=== PATIENT | female | born 1960 ===

== ENCOUNTER → 2023-08-28 14:58 | Outpatient (CLI) | payer OTHER, SELFPAY ==
[2023-08-28 15:47] LABS: Influenza A - CEPHEID Flu A NEGATIVE (NEGATIVE); Influenza B - CEPHEID Flu B NEGATIVE (NEGATIVE); Respiratory Syncytial Virus Negative (Negative)
[2023-08-28 15:48] LABS: COVID-19 CEPHEID 4-PLEX PCR Negative (Negative)
== END ==
PROVIDERS: Visit Provider Physician Assistant
DX: R05.1 Acute cough (principal)
CPT/HCPCS: 0241U

== ENCOUNTER → 2023-08-28 15:39 | Outpatient (CLI) | payer OTHER, SELFPAY ==
--- NOTE | 2023-08-28 15:45 | DI.RAD.S_ITS ---
PROCEDURE: XR CHEST 2V INDICATIONS: Cough and wheezing TECHNIQUE: 2 views of the chest were acquired. COMPARISON: None. FINDINGS: Surgical changes and devices: None. Lungs and pleura: Lungs are clear. No pleural effusions or pneumothorax. Lungs hyperinflated suggesting COPD. Mediastinum: Mediastinal contours are normal. Heart size is normal. Bones and chest wall: No suspicious bony abnormalities. Soft tissues appear unremarkable. IMPRESSION: No acute cardiopulmonary abnormality is seen. Dictated by: Britt Brar MD, PhD on 08/28/2023 at 16:05 Approved by: Britt Brar MD, PhD on 08/28/2023 at 16:05
== END ==
PROVIDERS: Referring Provider Physician Assistant; Visit Provider Physician Assistant
DX: R05.1 Acute cough (principal)
CPT/HCPCS: 0241U; 71046

== ENCOUNTER → 2023-09-11 12:59 | Outpatient (CLI) | payer OTHER, SELFPAY ==
--- NOTE | 2023-09-11 13:00 | DI.RAD.S_ITS ---
PROCEDURE: XR KNEE LT 3V INDICATIONS: left knee pain TECHNIQUE: 3 views of the knee were acquired. COMPARISON: None. FINDINGS: Bones: No fractures or dislocations. There is pftj-la-ayovimqo tricompartmental osteoarthritis more notably in medial femoral tibial compartment and patellofemoral compartment. Slight lateral tilt of patella is seen. No suspicious bony lesions. Soft tissues: Moderate suprapatellar joint effusion is seen. No suspicious soft tissue calcifications. IMPRESSION: [id number] tricompartmental osteoarthritis as above. No acute fracture or dislocation. Moderate suprapatellar joint effusion. Dictated by: Baldemar Thakkar M.D. on 09/11/2023 at 14:58 Approved by: Baldemar Thakkar M.D. on 09/11/2023 at 14:59
== END ==
PROVIDERS: Referring Provider Physical Medicine & Rehabilitation; Visit Provider Physical Medicine & Rehabilitation
DX: M17.12 Unilateral primary osteoarthritis, left knee (principal); M25.462 Effusion, left knee; M25.562 Pain in left knee
CPT/HCPCS: 73630

== ENCOUNTER → 2023-09-23 09:11 | Outpatient (CLI) | payer OTHER, SELFPAY ==
--- NOTE | 2023-09-23 09:13 | DI.MRI.S_ITS ---
PROCEDURE: MR KNEE LT WO CON INDICATIONS: meniscal tear acute TECHNIQUE: Noncontrast sagittal PD fast spin echo and T2 fast spin echo with fat saturation, sagittal 3-D FLASH with fat saturation; coronal T1 spin echo and PD fast spin echo with fat saturation, and axial PD fast spin echo with fat saturation through the knee. COMPARISON: None. FINDINGS: Image quality: Excellent. Menisci: Peripheral displacement of medial meniscus bowing medial collateral ligament is seen. Complex oblique tear involving posterior horn of medial meniscus extending to superior articulating surface is seen. The lateral meniscus is intact. The meniscal root ligaments appear intact. Cruciate ligaments: The anterior cruciate ligament is thickened. The posterior cruciate ligament is intact. Medial structures: The medial collateral ligament appears mildly thickened with adjacent soft tissue edema. Visualized portions of the pes anserinus tendons appear normal. No abnormal bursal fluid. Lateral structures: The lateral collateral ligament, long and short heads of the biceps femoris tendon appear intact. The popliteus tendon appears normal. Iliotibial band appears normal. Anterior structures: Distal quadriceps tendinosis at its superior patellar insertion is seen. The patellar tendon is intact. Patellar alignment is normal. No femoral trochlear dysplasia or ventral trochlear prominence. No edema in the infrapatellar fat pad. Bones and cartilage: No bone marrow contusions or fractures. Uimh-xq-kilelkji tricompartmental osteoarthritis and chondromalacia is seen most notably in medial femoral tibial compartment. Joint space: There is moderate to large knee joint fluid. No gross loose bodies. No Bond's cyst. Normal appearing synovial plicae are incidentally noted. IMPRESSION: 1. Complex oblique tear involving posterior horn of medial meniscus extending to inferior articulating surface. The lateral meniscus is intact. 2. Low-grade ACL sprain. No ACL rupture. The PCL is intact. 3. Low-grade MCL sprain/partial-thickness tear. 4. Distal quadriceps tendinosis. 5. Bois-on-ycvrfedp tricompartmental osteoarthritis and chondromalacia most notably in medial femoral tibial compartment. No fracture or dislocation. Moderate joint effusion, no gross loose bodies. Dictated by: Baldemar Thakkar M.D. on 09/24/2023 at 12:13 Approved by: Baldemar Thakkar M.D. on 09/24/2023 at 12:15
== END ==
LOC: MRI 09:12
PROVIDERS: Family Provider Physical Medicine & Rehabilitation; PCP Physical Medicine & Rehabilitation; Referring Provider Physical Medicine & Rehabilitation; Visit Provider Physical Medicine & Rehabilitation
DX: S83.232A Complex tear of medial meniscus, current injury, left knee, initial encounter (principal); S83.512A Sprain of anterior cruciate ligament of left knee, initial encounter; S83.412A Sprain of medial collateral ligament of left knee, initial encounter; M17.12 Unilateral primary osteoarthritis, left knee; M94.262 Chondromalacia, left knee; M25.462 Effusion, left knee
CPT/HCPCS: 73721

== ENCOUNTER → 2023-09-25 13:39 | Outpatient (CLI) | payer OTHER, SELFPAY ==
--- NOTE | 2023-09-25 13:40 | DI.RAD.S_ITS ---
PROCEDURE: XR KNEE RT 3V INDICATIONS: knee djd TECHNIQUE: 3 views of the knee were acquired. COMPARISON: [facility], CR, XR KNEE LT 3V, 09/11/2023, 13:10. FINDINGS: Bones: No fractures or dislocations. No suspicious bony lesions. Tricompartmental joint space narrowing. Osteophytic lipping of the patella. Soft tissues: No joint effusion. No suspicious soft tissue calcifications. IMPRESSION: Mild tricompartmental osteoarthritis. Dictated by: Farooq Preston M.D. on 09/25/2023 at 15:54 Approved by: Farooq Preston M.D. on 09/25/2023 at 15:55
--- NOTE | 2023-09-25 13:43 | DI.RAD.S_ITS ---
PROCEDURE: XR KNEE LT 1TO2V INDICATIONS: PAIN TECHNIQUE: 1 views of the knee were acquired. COMPARISON: [facility], CR, XR KNEE LT 3V, 09/11/2023, 13:10. FINDINGS: Bones: No fractures or dislocations. No suspicious bony lesions. Bicompartmental joint space narrowing, with osteophytic lipping. Soft tissues: No suspicious soft tissue calcifications. IMPRESSION: Mild bicompartmental osteoarthritis. Dictated by: Farooq Preston M.D. on 09/25/2023 at 15:57 Approved by: Farooq Preston M.D. on 09/25/2023 at 15:58
== END ==
PROVIDERS: Family Provider Physical Medicine & Rehabilitation; Referring Provider Physical Medicine & Rehabilitation; Visit Provider Physical Medicine & Rehabilitation
DX: M17.0 Bilateral primary osteoarthritis of knee
CPT/HCPCS: 73560; 73562

== ENCOUNTER 2024-01-14 16:45 | Outpatient (RCR) | payer OTHER, SELFPAY ==
--- NOTE | 2023-10-17 14:30 | PT.OIE ---
Current Diagnoses Unilateral primary osteoarthritis, left knee (10/17/23) Pain in left knee (10/17/23) Stiffness of left knee, not elsewhere classified (10/17/23) Other tear of medial meniscus, current injury, left knee, initial encounter (10/17/23) Past Medical History (Last Reviewed 09/24/23 @ 08:44 by Hank Rey DO) Arthritis of left knee Tear of medial meniscus of left knee Tricompartment degenerative joint disease of knee Past Surgical History (Last Reviewed 09/24/23 @ 08:44 by Hank Rey DO) History of tonsillectomy Visit Care Team Role Provider Type Hank Rey DO Attending Provider Physician Family Provider Primary Care Provider Referring Provider Specialty: Interventional Radiology Physiatry Pain Management Address: [address] [place] [address], [id number] Email: [email or web address] Physical Therapy Initial Evaluation PT-OP-A Visit Information Start: 10/17/23 17:43 Freq: Status: Active Protocol: Document 10/17/23 13:45 DCW (Rec: 10/17/23 17:50 DCW [id number]) Out-Patient Physical Therapy Visit Information Visit Information Visit Type Initial Evaluation Visit Start Time 13:45 Visit Stop Time 14:30 Visit Number 1 Number of LINE TENDER Visits 0 Evaluation Information Evaluation Date 10/17/23 PT-OP-B Current Condition Start: 10/17/23 17:43 Freq: Status: Active Protocol: Document 10/17/23 13:45 DCW (Rec: 10/18/23 10:56 DCW [id number]) Current Condition History of Current Condition Onset Date March, Current Complaints Meniscus tear, MCL/ACL sprain History of Current Condition Pt is a 63 year old female presenting with a seven month history of left knee pain. Notes that in March,, she was kneeling on a pile of books, which the slipped out from under her, resulting in her slamming her knee to the floor. Was painful at that point, but she was able to get up and walk around on it, so she basically just ignored it , although it never really went away. Pt was then hiking September 01, 2023, and five miles into her seven mile hike , she felt something give in her knee, and has had significantly increased discomfort since then. Obtained an MRI, which showed a medial meniscus tear, ACL sprain, and MCL sprain/partial -thickness tear. Has improved some since August, able to perform light jogging okay, but still feels weaker and less stable. Has difficulty standing on one leg. Squatting and ascending/descending stairs is more difficult. Prior Treatments and Tests Left knee MRI: IMPRESSION: 1. Complex oblique tear involving posterior horn of medial meniscus extending to inferior articulating surface. The lateral meniscus is intact. 2. Low-grade ACL sprain. No ACL rupture. The PCL is intact. 3. Low-grade MCL sprain/partial-thickness tear. 4. Distal quadriceps tendinosis. 5. 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 No fracture or dislocation. Moderate joint effusion, no gross loose bodies. per Baldemar Thakkar M.D. on 09/24/2023 Treatment Goals Patient/Caregiver Goals I'd like it if it just went back to ignorable pain. PT-OP-C Subjective Start: 10/17/23 17:43 Freq: Status: Active Protocol: Document 10/17/23 13:45 DCW (Rec: 10/17/23 17:50 DCW [id number]) OP-PT Subjective Patient Comments Patient Comments I feel like my right knee isn 't far behind my left. Patient Reported Progress Improving Patient Questionnaires Lower Extremity Functional Scale LEFS Score 52/80 = 65% PT-OP-G Mobility & Gait Start: 10/17/23 17:43 Freq: Status: Active Protocol: Document 10/17/23 13:45 DCW (Rec: 10/18/23 10:56 DCW [id number]) OP Gait Assessment Comments Gait Comments Slight left toe-out/ER during gait Stair Climbing Evaluation Comments Stair Climbing Comments When lowering with left leg, pt exhibits significantly less control over descent, more of a free-fall that is stopped by her right foot. PT-OP-K Range of Motion Start: 10/17/23 17:43 Freq: Status: Active Protocol: Document 10/17/23 13:45 DCW (Rec: 10/18/23 10:56 DCW [id number]) Knee Goniometric Range of Motion Knee Right Patient Position Supine Flexion Active (degrees) 125 Extension Active (degrees) 2 Left Patient Position Supine Flexion Active (degrees) 119 Extension Active (degrees) 8 PT-OP-M Strength Start: 10/17/23 17:43 Freq: Status: Active Protocol: Document 10/17/23 13:45 DCW (Rec: 10/18/23 10:56 DCW [id number]) Hip Strength Hip Manual Muscle Testing Right Flexion (L2) 4+ Good+ Abduction 4+ Good+ Adduction 4 Good External Rotation 4+ Good+ Internal Rotation 4+ Good+ Left Flexion (L2) 4- Good- Abduction 4+ Good+ Adduction 4 Good External Rotation 4 Good Internal Rotation 4 Good Knee Strength Knee Manual Muscle Testing Right Flexion (S2) 4+ Good+ Extension (L3) 4+ Good+ Left Flexion (S2) 4 Good Extension (L3) 4 Good PT-OP-Q Treatments Start: 10/17/23 17:43 Freq: Status: Active Protocol: Document 10/17/23 13:45 DCW (Rec: 10/17/23 17:50 DCW [id number]) Therapeutic Exercises Supine Exercises Hamstring stretch Supine Exercise Name HS stretch /c strap Side left Bridging Supine Exercise Name Bridging /c adductor squeeze SLR Supine Exercise Name SLR /c ER Side left Standing Exercises Wall squat Standing Exercise Name Wall squat /c adductor squeeze PT-OP-T Assessment and Plan Start: 10/17/23 17:43 Freq: Status: Active Protocol: Document 10/17/23 13:45 DCW (Rec: 10/18/23 10:56 DCW [id number]) Physical Therapy Assessment Rehab Potential Rehabilitation Potential Good Evaluation Complexity Number of Personal Factors/Comorbidities 1-2 Number of Body Systems Impaired 3 Clinical Presentation at Evaluation Unstable Impairments Impairments Activity Tolerance,Functional Activities,Functional Mobility ,Pain,ROM,Soft Tissue Mobility ,Strength,Tone Goals Two Impairment Pt exhibits moderately uncontrolled descent by left LE on stairs Roll Over Press Operator Goal (LTG) Pt to exhibit proper technique with ascending and descending stairs equally between left and right LE in order to limit potential for falls or injury . LTG Duration 12/16/23 One Impairment Pt does not have an appropriate home exercise program Short Term Goal (STG) Pt to be independent and compliant with an appropriate HEP STG Duration 11/15/23 Assessment Summary Assessment Pt presents with signs and symptoms consistent with referring diagnosis. Pt exhibits some general weakness and pain throughout left knee , most evident when testing against resistance or descending stairs. Slight limitations in ROM, including 8? lacking from full extension . Pt should benefit from skilled therapeutic intervention including improving knee, quad, and hamstring strengthening, activity tolerance, knee flexibility/mobility, and pain control modalities as needed. Physical Therapy Plan Frequency and Duration Frequency of Treatment 2x/Week Plan of Care Start Date 10/17/23 Plan of Care End Date 12/16/23 Therapeutic Interventions Therapeutic Interventions Gait Training,Home Exercise Program,Joint Mobilizations, Manual Therapy,Neuromuscular Re-education,Patient/Caregiver Education,Self-Care/Home Management,Soft Tissue Mobilization,Therapeutic Activities,Therapeutic Exercises Modalities Cold Pack/Ice Massage,Electric Stimulation,Hot Packs, Ultrasound Next Visit Focus/Plan Next Note Type Treatment Note Next Visit Plan Quad/HS strengthening, balance /stability challenges, gait training
--- NOTE | 2023-10-17 14:30 | PT.OPPOC ---
Physical, Occupational & Speech Therapy At [facility] Current Diagnoses Unilateral primary osteoarthritis, left knee (10/17/23) Pain in left knee (10/17/23) Stiffness of left knee, not elsewhere classified (10/17/23) Other tear of medial meniscus, current injury, left knee, initial encounter (10/17/23) Visit Care Team Role Provider Type Hank Rey DO Attending Provider Physician Family Provider Primary Care Provider Referring Provider Specialty: Interventional Radiology Physiatry Pain Management Address: [address] [place] [address] [place], [address] Email: [email or web address] Plan Of Care PT-OP-T Assessment and Plan Start: 10/17/23 17:43 Freq: Status: Active Protocol: Document 10/17/23 13:45 DCW (Rec: 10/18/23 10:56 DCW [id number]) Physical Therapy Assessment Rehab Potential Rehabilitation Potential Good Evaluation Complexity Number of Personal Factors/Comorbidities 1-2 Number of Body Systems Impaired 3 Clinical Presentation at Evaluation Unstable Impairments Impairments Activity Tolerance,Functional Activities,Functional Mobility ,Pain,ROM,Soft Tissue Mobility ,Strength,Tone Goals Two Impairment Pt exhibits moderately uncontrolled descent by left LE on stairs Group Home Goal (LTG) Pt to exhibit proper technique with ascending and descending stairs equally between left and right LE in order to limit potential for falls or injury . LTG Duration 12/16/23 One Impairment Pt does not have an appropriate home exercise program Short Term Goal (STG) Pt to be independent and compliant with an appropriate HEP STG Duration 11/15/23 Assessment Summary Assessment Pt presents with signs and symptoms consistent with referring diagnosis. Pt exhibits some general weakness and pain throughout left knee , most evident when testing against resistance or descending stairs. Slight limitations in ROM, including 8? lacking from full extension . Pt should benefit from skilled therapeutic intervention including improving knee, quad, and hamstring strengthening, activity tolerance, knee flexibility/mobility, and pain control modalities as needed. Physical Therapy Plan Frequency and Duration Frequency of Treatment 2x/Week Plan of Care Start Date 10/17/23 Plan of Care End Date 12/16/23 Therapeutic Interventions Therapeutic Interventions Gait Training,Home Exercise Program,Joint Mobilizations, Manual Therapy,Neuromuscular Re-education,Patient/Caregiver Education,Self-Care/Home Management,Soft Tissue Mobilization,Therapeutic Activities,Therapeutic Exercises Modalities Cold Pack/Ice Massage,Electric Stimulation,Hot Packs, Ultrasound Next Visit Focus/Plan Next Note Type Treatment Note Next Visit Plan Quad/HS strengthening, balance /stability challenges, gait training Plan of Care Dates Plan of Care Start Date 10/17/23 Plan of Care End Date 12/16/23 Electronically Signed by: Ace Epstein, PT 10/18/23 7980 If you are in agreement with this Plan of Care, please return a signed and dated copy. I have reviewed this Plan of Care and certify that the skilled therapy services above are required to meet the patient?s needs. Physician Signature Date Printed Name and Credentials Clinical Instructor Signature Printed Name and Credentials
--- NOTE | 2023-10-30 17:35 | PT.OTN ---
Current Diagnoses Unilateral primary osteoarthritis, left knee (10/30/23) Pain in left knee (10/30/23) Stiffness of left knee, not elsewhere classified (10/30/23) Other tear of medial meniscus, current injury, left knee, initial encounter (10/30/23) Other tear of medial meniscus, current injury, left knee, subsequent encounter (10/30/23) Physical Therapy Treatment Note PT-OP-A Visit Information Start: 10/17/23 17:43 Freq: Status: Active Protocol: Document 10/30/23 16:45 DCW (Rec: 10/30/23 17:35 DCW [id number]) Out-Patient Physical Therapy Visit Information Visit Information Visit Type Treatment Note Visit Start Time 16:45 Visit Stop Time 17:30 Visit Number 2 Number of PIT WORKER POWER SHOVEL Visits 0 Evaluation Information Evaluation Date 10/17/23 PT-OP-B Current Condition Start: 10/17/23 17:43 Freq: Status: Active Protocol: Document 10/17/23 13:45 DCW (Rec: 10/18/23 10:56 DCW [id number]) Current Condition History of Current Condition Onset Date March, Current Complaints Meniscus tear, MCL/ACL sprain History of Current Condition Pt is a 63 year old female presenting with a seven month history of left knee pain. Notes that in March,, she was kneeling on a pile of books, which the slipped out from under her, resulting in her slamming her knee to the floor. Was painful at that point, but she was able to get up and walk around on it, so she basically just ignored it , although it never really went away. Pt was then hiking September 01, 2023, and five miles into her seven mile hike , she felt something give in her knee, and has had significantly increased discomfort since then. Obtained an MRI, which showed a medial meniscus tear, ACL sprain, and MCL sprain/partial -thickness tear. Has improved some since August, able to perform light jogging okay, but still feels weaker and less stable. Has difficulty standing on one leg. Squating and ascending/descending stairs is more difficult. Prior Treatments and Tests Left knee MRI: IMPRESSION: 1. Complex oblique tear involving posterior horn of medial meniscus extending to inferior articulating surface. The lateral meniscus is intact. 2. Low-grade ACL sprain. No ACL rupture. The PCL is intact. 3. Low-grade MCL sprain/partial-thickness tear. 4. Distal quadriceps tendinosis. 5. 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 No fracture or dislocation. Moderate joint effusion, no gross loose bodies. per Baldemar Thakkar M.D. on 09/24/2023 Treatment Goals Patient/Caregiver Goals I'd like it if it just went back to ignorable pain. PT-OP-C Subjective Start: 10/17/23 17:43 Freq: Status: Active Protocol: Document 10/30/23 16:45 DCW (Rec: 10/30/23 17:35 DCW [id number]) OP-PT Subjective Patient Comments Patient Comments Pt has been out walking a lot, doing very well, but is much more sore today for some reason. PT-OP-G Mobility & Gait Start: 10/17/23 17:43 Freq: Status: Active Protocol: Document 10/17/23 13:45 DCW (Rec: 10/18/23 10:56 DCW [id number]) OP Gait Assessment Comments Gait Comments Slight left toe-out/ER during gait Stair Climbing Evaluation Comments Stair Climbing Comments When lowering with left leg, pt exhibits significantly less control over descent, more of a free-fall that is stopped by her right foot. PT-OP-K Range of Motion Start: 10/17/23 17:43 Freq: Status: Active Protocol: Document 10/17/23 13:45 DCW (Rec: 10/18/23 10:56 DCW [id number]) Knee Goniometric Range of Motion Knee Right Patient Position Supine Flexion Active (degrees) 125 Extension Active (degrees) 2 Left Patient Position Supine Flexion Active (degrees) 119 Extension Active (degrees) 8 PT-OP-M Strength Start: 10/17/23 17:43 Freq: Status: Active Protocol: Document 10/17/23 13:45 DCW (Rec: 10/18/23 10:56 DCW [id number]) Hip Strength Hip Manual Muscle Testing Right Flexion (L2) 4+ Good+ Abduction 4+ Good+ Adduction 4 Good External Rotation 4+ Good+ Internal Rotation 4+ Good+ Left Flexion (L2) 4- Good- Abduction 4+ Good+ Adduction 4 Good External Rotation 4 Good Internal Rotation 4 Good Knee Strength Knee Manual Muscle Testing Right Flexion (S2) 4+ Good+ Extension (L3) 4+ Good+ Left Flexion (S2) 4 Good Extension (L3) 4 Good PT-OP-Q Treatments Start: 10/17/23 17:43 Freq: Status: Active Protocol: Document 10/30/23 16:45 DCW (Rec: 10/30/23 17:35 DCW [id number]) Gym Equipment Shuttle Recovery Unilateral Squats Resistance 50# Bilateral Squats Details Adductor Ball Squeeze Resistance 75# Shuttle Balance Red Details WBOS, Staggered, Lateral Therapeutic Exercises Supine Exercises SLR Supine Exercise Name SLR /c ER Side left Standing Exercises Hip Extension Standing Exercise Name Hip Extension Side bilateral Resistance [place] loop TKE Standing Exercise Name TKE Side left Other Exercises Resisted Ambulation Other Exercise Name Resisted side-stepping Resistance Green loop BOSU Lunge Other Exercise Name BOSU Lunge Side bilateral Equipment Used Blue BOSU Manual Therapy Treatment Joint Mobilizations Patella Joint B Patellafemoral Direction Inf<->Sup Grade III Knee Joint B knee Direction A<->P Grade III PT-OP-T Assessment and Plan Start: 10/17/23 17:43 Freq: Status: Active Protocol: Document 10/30/23 16:45 DCW (Rec: 10/30/23 17:35 DCW [id number]) Physical Therapy Assessment Impairments Impairments Activity Tolerance,Functional Activities,Functional Mobility ,Pain,ROM,Soft Tissue Mobility ,Strength,Tone Goals Two Impairment Pt exhibits moderately uncontrolled descent by left LE on stairs Dehydrogenation Converter Helper Goal (LTG) Pt to exhibit proper technique with ascending and descending stairs equally between left and right LE in order to limit potential for falls or injury . LTG Duration 12/16/23 One Impairment Pt does not have an appropriate home exercise program Short Term Goal (STG) Pt to be independent and compliant with an appropriate HEP STG Duration 11/15/23 Assessment Summary Assessment Pt tolerated new exercises very well today with minimal knee pain, did note some discomfort with balance challenges and with palpation of the joint line bilaterally. Good response to strengthening while unstable surfaces. Physical Therapy Plan Frequency and Duration Frequency of Treatment 2x/Week Plan of Care Start Date 10/17/23 Plan of Care End Date 12/16/23 Therapeutic Interventions Therapeutic Interventions Gait Training,Home Exercise Program,Joint Mobilizations, Manual Therapy,Neuromuscular Re-education,Patient/Caregiver Education,Self-Care/Home Management,Soft Tissue Mobilization,Therapeutic Activities,Therapeutic Exercises Modalities Cold Pack/Ice Massage,Electric Stimulation,Hot Packs, Ultrasound Next Visit Focus/Plan Next Note Type Treatment Note Next Visit Plan Quad/HS strengthening, balance /stability challenges, gait training
--- NOTE | 2023-11-02 14:34 | PT.OTN ---
Current Diagnoses Unilateral primary osteoarthritis, left knee (11/02/23) Pain in left knee (11/02/23) Stiffness of left knee, not elsewhere classified (11/02/23) Other tear of medial meniscus, current injury, left knee, initial encounter (11/02/23) Other tear of medial meniscus, current injury, left knee, subsequent encounter (11/02/23) Physical Therapy Treatment Note PT-OP-A Visit Information Start: 10/17/23 17:43 Freq: Status: Active Protocol: Document 11/02/23 13:45 DCW (Rec: 11/02/23 14:34 DCW [id number]) Out-Patient Physical Therapy Visit Information Visit Information Visit Type Treatment Note Visit Start Time 13:45 Visit Stop Time 14:30 Visit Number 3 Number of INDUSTRIAL DIAMOND POLISHER Visits 0 Evaluation Information Evaluation Date 10/17/23 PT-OP-B Current Condition Start: 10/17/23 17:43 Freq: Status: Active Protocol: Document 10/17/23 13:45 DCW (Rec: 10/18/23 10:56 DCW [id number]) Current Condition History of Current Condition Onset Date March, Current Complaints Meniscus tear, MCL/ACL sprain History of Current Condition Pt is a 63 year old female presenting with a seven month history of left knee pain. Notes that in March,, she was kneeling on a pile of books, which the slipped out from under her, resulting in her slamming her knee to the floor. Was painful at that point, but she was able to get up and walk around on it, so she basically just ignored it , although it never really went away. Pt was then hiking September 01, 2023, and five miles into her seven mile hike , she felt something give in her knee, and has had significantly increased discomfort since then. Obtained an MRI, which showed a medial meniscus tear, ACL sprain, and MCL sprain/partial -thickness tear. Has improved some since August, able to perform light jogging okay, but still feels weaker and less stable. Has difficulty standing on one leg. Squating and ascending/descending stairs is more difficult. Prior Treatments and Tests Left knee MRI: IMPRESSION: 1. Complex oblique tear involving posterior horn of medial meniscus extending to inferior articulating surface. The lateral meniscus is intact. 2. Low-grade ACL sprain. No ACL rupture. The PCL is intact. 3. Low-grade MCL sprain/partial-thickness tear. 4. Distal quadriceps tendinosis. 5. 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 No fracture or dislocation. Moderate joint effusion, no gross loose bodies. per Baldemar Thakkar M.D. on 09/24/2023 Treatment Goals Patient/Caregiver Goals I'd like it if it just went back to ignorable pain. PT-OP-C Subjective Start: 10/17/23 17:43 Freq: Status: Active Protocol: Document 11/02/23 13:45 DCW (Rec: 11/02/23 14:34 DCW [id number]) OP-PT Subjective Patient Comments Patient Comments Knee feeling better today, was not sore following her last appointment. PT-OP-G Mobility & Gait Start: 10/17/23 17:43 Freq: Status: Active Protocol: Document 10/17/23 13:45 DCW (Rec: 10/18/23 10:56 DCW [id number]) OP Gait Assessment Comments Gait Comments Slight left toe-out/ER during gait Stair Climbing Evaluation Comments Stair Climbing Comments When lowering with left leg, pt exhibits significantly less control over descent, more of a free-fall that is stopped by her right foot. PT-OP-K Range of Motion Start: 10/17/23 17:43 Freq: Status: Active Protocol: Document 10/17/23 13:45 DCW (Rec: 10/18/23 10:56 DCW [id number]) Knee Goniometric Range of Motion Knee Right Patient Position Supine Flexion Active (degrees) 125 Extension Active (degrees) 2 Left Patient Position Supine Flexion Active (degrees) 119 Extension Active (degrees) 8 PT-OP-M Strength Start: 10/17/23 17:43 Freq: Status: Active Protocol: Document 10/17/23 13:45 DCW (Rec: 10/18/23 10:56 DCW [id number]) Hip Strength Hip Manual Muscle Testing Right Flexion (L2) 4+ Good+ Abduction 4+ Good+ Adduction 4 Good External Rotation 4+ Good+ Internal Rotation 4+ Good+ Left Flexion (L2) 4- Good- Abduction 4+ Good+ Adduction 4 Good External Rotation 4 Good Internal Rotation 4 Good Knee Strength Knee Manual Muscle Testing Right Flexion (S2) 4+ Good+ Extension (L3) 4+ Good+ Left Flexion (S2) 4 Good Extension (L3) 4 Good PT-OP-Q Treatments Start: 10/17/23 17:43 Freq: Status: Active Protocol: Document 11/02/23 13:45 DCW (Rec: 11/02/23 14:34 DCW [id number]) Cardio Equipment Bicycle (Upright) Duration (Minutes) 4 Resistance 5 Seat Position 6 Gym Equipment Shuttle Recovery Unilateral Squats Resistance 50# Bilateral Squats Details Adductor Ball Squeeze Resistance 87# Shuttle Balance Red Details WBOS, Staggered, Lateral Therapeutic Exercises Standing Exercises Hip Extension Standing Exercise Name Hip Extension Side bilateral Resistance Green loop Other Exercises Resisted Ambulation Other Exercise Name Resisted side-stepping Resistance Green loop BOSU Lunge Other Exercise Name BOSU Lunge Side bilateral Equipment Used Blue BOSU Comments Medial/Lateral T-band pull Manual Therapy Treatment Joint Mobilizations Patella Joint B Patellafemoral Direction Inf<->Sup Grade III Knee Joint B knee Direction A<->P Grade III Neuro Re-Education Treatment Balance Activities Step-ups Details Lateral step-ups Surface AirEx PT-OP-T Assessment and Plan Start: 10/17/23 17:43 Freq: Status: Active Protocol: Document 11/02/23 13:45 DCW (Rec: 11/02/23 14:34 DCW [id number]) Physical Therapy Assessment Impairments Impairments Activity Tolerance,Functional Activities,Functional Mobility ,Pain,ROM,Soft Tissue Mobility ,Strength,Tone Goals Two Impairment Pt exhibits moderately uncontrolled descent by left LE on stairs Group Home Goal (LTG) Pt to exhibit proper technique with ascending and descending stairs equally between left and right LE in order to limit potential for falls or injury . LTG Duration 12/16/23 One Impairment Pt does not have an appropriate home exercise program Short Term Goal (STG) Pt to be independent and compliant with an appropriate HEP STG Duration 11/15/23 Assessment Summary Assessment Pt continues to do well with increased activities in PT. Trial of upright bicycle, pt notes able to do it with no increase in pain, interested in joining a gym to continue using stationary bike. Physical Therapy Plan Frequency and Duration Frequency of Treatment 2x/Week Plan of Care Start Date 10/17/23 Plan of Care End Date 12/16/23 Therapeutic Interventions Therapeutic Interventions Gait Training,Home Exercise Program,Joint Mobilizations, Manual Therapy,Neuromuscular Re-education,Patient/Caregiver Education,Self-Care/Home Management,Soft Tissue Mobilization,Therapeutic Activities,Therapeutic Exercises Modalities Cold Pack/Ice Massage,Electric Stimulation,Hot Packs, Ultrasound Next Visit Focus/Plan Next Note Type Treatment Note Next Visit Plan Quad/HS strengthening, balance /stability challenges, gait training
--- NOTE | 2023-11-14 09:42 | PT.OTN ---
Current Diagnoses Unilateral primary osteoarthritis, left knee (11/14/23) Pain in left knee (11/14/23) Stiffness of left knee, not elsewhere classified (11/14/23) Other tear of medial meniscus, current injury, left knee, initial encounter (11/14/23) Other tear of medial meniscus, current injury, left knee, subsequent encounter (11/14/23) Physical Therapy Treatment Note PT-OP-A Visit Information Start: 10/17/23 17:43 Freq: Status: Active Protocol: Document 11/14/23 08:02 AB (Rec: 11/14/23 09:00 AB [id number]) Out-Patient Physical Therapy Visit Information Visit Information Visit Type Treatment Note Visit Note Access Code [email or web address] Visit Start Time 08:16 Visit Stop Time 08:58 Visit Number 4 Number of EMBALMER/FUNERAL DIRECTOR Visits 1 Evaluation Information Evaluation Date 10/17/23 PT-OP-B Current Condition Start: 10/17/23 17:43 Freq: Status: Active Protocol: Document 10/17/23 13:45 DCW (Rec: 10/18/23 10:56 DCW [id number]) Current Condition History of Current Condition Onset Date March, Current Complaints Meniscus tear, MCL/ACL sprain History of Current Condition Pt is a 63 year old female presenting with a seven month history of left knee pain. Notes that in March,, she was kneeling on a pile of books, which the slipped out from under her, resulting in her slamming her knee to the floor. Was painful at that point, but she was able to get up and walk around on it, so she basically just ignored it , although it never really went away. Pt was then hiking September 01, 2023, and five miles into her seven mile hike , she felt something give in her knee, and has had significantly increased discomfort since then. Obtained an MRI, which showed a medial meniscus tear, ACL sprain, and MCL sprain/partial -thickness tear. Has improved some since August, able to perform light jogging okay, but still feels weaker and less stable. Has difficulty standing on one leg. Squating and ascending/descending stairs is more difficult. Prior Treatments and Tests Left knee MRI: IMPRESSION: 1. Complex oblique tear involving posterior horn of medial meniscus extending to inferior articulating surface. The lateral meniscus is intact. 2. Low-grade ACL sprain. No ACL rupture. The PCL is intact. 3. Low-grade MCL sprain/partial-thickness tear. 4. Distal quadriceps tendinosis. 5. 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 No fracture or dislocation. Moderate joint effusion, no gross loose bodies. per Baldemar Thakkar M.D. on 09/24/2023 Treatment Goals Patient/Caregiver Goals I'd like it if it just went back to ignorable pain. PT-OP-C Subjective Start: 10/17/23 17:43 Freq: Status: Active Protocol: Document 11/14/23 08:02 AB (Rec: 11/14/23 09:00 AB [id number]) OP-PT Subjective Patient Comments Patient Comments Patient reports the knee is getting better, forgets about the pain about a half an hour at a time. PT-OP-G Mobility & Gait Start: 10/17/23 17:43 Freq: Status: Active Protocol: Document 10/17/23 13:45 DCW (Rec: 10/18/23 10:56 DCW [id number]) OP Gait Assessment Comments Gait Comments Slight left toe-out/ER during gait Stair Climbing Evaluation Comments Stair Climbing Comments When lowering with left leg, pt exhibits significantly less control over descent, more of a free-fall that is stopped by her right foot. PT-OP-K Range of Motion Start: 10/17/23 17:43 Freq: Status: Active Protocol: Document 10/17/23 13:45 DCW (Rec: 10/18/23 10:56 DCW [id number]) Knee Goniometric Range of Motion Knee Right Patient Position Supine Flexion Active (degrees) 125 Extension Active (degrees) 2 Left Patient Position Supine Flexion Active (degrees) 119 Extension Active (degrees) 8 PT-OP-M Strength Start: 10/17/23 17:43 Freq: Status: Active Protocol: Document 10/17/23 13:45 DCW (Rec: 10/18/23 10:56 DCW [id number]) Hip Strength Hip Manual Muscle Testing Right Flexion (L2) 4+ Good+ Abduction 4+ Good+ Adduction 4 Good External Rotation 4+ Good+ Internal Rotation 4+ Good+ Left Flexion (L2) 4- Good- Abduction 4+ Good+ Adduction 4 Good External Rotation 4 Good Internal Rotation 4 Good Knee Strength Knee Manual Muscle Testing Right Flexion (S2) 4+ Good+ Extension (L3) 4+ Good+ Left Flexion (S2) 4 Good Extension (L3) 4 Good PT-OP-Q Treatments Start: 10/17/23 17:43 Freq: Status: Active Protocol: Document 11/14/23 08:02 AB (Rec: 11/14/23 09:00 AB [id number]) Therapeutic Exercises Supine Exercises quad set Side left Equipment Used X10 Comments post manual therapy and hamstring stretch Hamstring stretch Supine Exercise Name HS stretch holding behind knee with towel Side left Reps/Minutes 60 seconds X 2 Comments post manual therapy Bridging Supine Exercise Name Bridging /c adductor squeeze SLR Supine Exercise Name SLR /c ER Side left Sitting Exercises seated hip abduction with band Side bilateral Equipment Used level one light blue band Reps/Minutes X10 X 2 and one one min hold Comments Verbal cues Standing Exercises mini squat with band Side bilateral Resistance 2X10 Equipment Used light blue band above knees Reps/Minutes 2X10 Comments VC to squat to a depth that does not increase pain Gait Training Gait Activity ambulation without device Distance/Duration 25 ft X 2 Comments VC for heel toe pattern, mimic pattern of unaffected LE VC to increase knee extension on heel strike not joselyn ascending and desc 6 inch steps X4 X 3 Distance/Duration first set of 4 steps assessment 2nd and 3rd set training Comments Verbal and visual cues to descend stairs with a less quad dominant pattern, slight hip hinge. Manual Therapy Treatment Soft Tissue Mobilization for swelling, hamstring stiffness and area of inc density lat left knee Body Location left LE Mobilization Type Cross-Friction,Rolling Body Position Hooklying Comments prior to stretch Joint Mobilizations Patella Joint B Patellafemoral Direction inf sup, cw and CCW Grade III Neuro Re-Education Treatment Balance Activities Step-ups Details Lateral step-ups Surface AirEx Equipment one air ex left LE 2 stacked for right LE Reps/Duration X10 each LE Comments trial of 2 stacked for left LE LE reports less pain than previous session, but pain not eliminated Self-Care/Home Management Treatment Activities Self-Care/Home Management Activities mini squat with band and seated hip abd with band added to HEP PT-OP-T Assessment and Plan Start: 10/17/23 17:43 Freq: Status: Active Protocol: Document 11/14/23 08:02 AB (Rec: 11/14/23 09:00 AB [id number]) Physical Therapy Assessment Goals Two Impairment Pt exhibits moderately uncontrolled descent by left LE on stairs Mcfp Goal (LTG) Pt to exhibit proper technique with ascending and descending stairs equally between left and right LE in order to limit potential for falls or injury . LTG Duration 12/16/23 One Impairment Pt does not have an appropriate home exercise program Short Term Goal (STG) Pt to be independent and compliant with an appropriate HEP STG Duration 11/15/23 Assessment Summary Assessment Alethea able to descend stairs with a less quad dominant pattern, increased stance time left LE descending and reports of decreased pain. Patient is only able to perform a minimal depth squat prior to increase in pain. Physical Therapy Plan Frequency and Duration Frequency of Treatment 2x/Week Plan of Care Start Date 10/17/23 Plan of Care End Date 12/16/23 Next Visit Focus/Plan Next Note Type Treatment Note Next Visit Plan Quad/HS strengthening, balance /stability challenges, gait training
--- NOTE | 2023-11-22 12:44 | PT.OTN ---
Current Diagnoses Unilateral primary osteoarthritis, left knee (11/22/23) Pain in left knee (11/22/23) Stiffness of left knee, not elsewhere classified (11/22/23) Other tear of medial meniscus, current injury, left knee, initial encounter (11/22/23) Other tear of medial meniscus, current injury, left knee, subsequent encounter (11/22/23) Physical Therapy Treatment Note PT-OP-A Visit Information Start: 10/17/23 17:43 Freq: Status: Active Protocol: Document 11/22/23 10:35 SW (Rec: 11/22/23 11:17 SW [id number]) Out-Patient Physical Therapy Visit Information Visit Information Visit Type Treatment Note Visit Start Time 10:33 Visit Stop Time 11:12 Visit Number 5 Number of DRAFTER STRUCTURAL Visits 2 PT-OP-B Current Condition Start: 10/17/23 17:43 Freq: Status: Active Protocol: Document 10/17/23 13:45 DCW (Rec: 10/18/23 10:56 DCW [id number]) Current Condition History of Current Condition Onset Date March, Current Complaints Meniscus tear, MCL/ACL sprain History of Current Condition Pt is a 63 year old female presenting with a seven month history of left knee pain. Notes that in March,, she was kneeling on a pile of books, which the slipped out from under her, resulting in her slamming her knee to the floor. Was painful at that point, but she was able to get up and walk around on it, so she basically just ignored it , although it never really went away. Pt was then hiking September 01, 2023, and five miles into her seven mile hike , she felt something give in her knee, and has had significantly increased discomfort since then. Obtained an MRI, which showed a medial meniscus tear, ACL sprain, and MCL sprain/partial -thickness tear. Has improved some since August, able to perform light jogging okay, but still feels weaker and less stable. Has difficulty standing on one leg. Squating and ascending/descending stairs is more difficult. Prior Treatments and Tests Left knee MRI: IMPRESSION: 1. Complex oblique tear involving posterior horn of medial meniscus extending to inferior articulating surface. The lateral meniscus is intact. 2. Low-grade ACL sprain. No ACL rupture. The PCL is intact. 3. Low-grade MCL sprain/partial-thickness tear. 4. Distal quadriceps tendinosis. 5. 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 No fracture or dislocation. Moderate joint effusion, no gross loose bodies. per Baldemar Thakkar M.D. on 09/24/2023 Treatment Goals Patient/Caregiver Goals I'd like it if it just went back to ignorable pain. PT-OP-C Subjective Start: 10/17/23 17:43 Freq: Status: Active Protocol: Document 11/22/23 10:35 SW (Rec: 11/22/23 11:17 SW [id number]) OP-PT Subjective Patient Comments Patient Comments Pt reports knee increase in swelling, sees doctor alexsandra this afternoon. PT-OP-G Mobility & Gait Start: 10/17/23 17:43 Freq: Status: Active Protocol: Document 10/17/23 13:45 DCW (Rec: 10/18/23 10:56 DCW [id number]) OP Gait Assessment Comments Gait Comments Slight left toe-out/ER during gait Stair Climbing Evaluation Comments Stair Climbing Comments When lowering with left leg, pt exhibits significantly less control over descent, more of a free-fall that is stopped by her right foot. PT-OP-K Range of Motion Start: 10/17/23 17:43 Freq: Status: Active Protocol: Document 10/17/23 13:45 DCW (Rec: 10/18/23 10:56 DCW [id number]) Knee Goniometric Range of Motion Knee Right Patient Position Supine Flexion Active (degrees) 125 Extension Active (degrees) 2 Left Patient Position Supine Flexion Active (degrees) 119 Extension Active (degrees) 8 PT-OP-M Strength Start: 10/17/23 17:43 Freq: Status: Active Protocol: Document 10/17/23 13:45 DCW (Rec: 10/18/23 10:56 DCW [id number]) Hip Strength Hip Manual Muscle Testing Right Flexion (L2) 4+ Good+ Abduction 4+ Good+ Adduction 4 Good External Rotation 4+ Good+ Internal Rotation 4+ Good+ Left Flexion (L2) 4- Good- Abduction 4+ Good+ Adduction 4 Good External Rotation 4 Good Internal Rotation 4 Good Knee Strength Knee Manual Muscle Testing Right Flexion (S2) 4+ Good+ Extension (L3) 4+ Good+ Left Flexion (S2) 4 Good Extension (L3) 4 Good PT-OP-Q Treatments Start: 10/17/23 17:43 Freq: Status: Active Protocol: Document 11/22/23 10:35 SW (Rec: 11/22/23 11:17 [id number]) Cardio Equipment Bicycle (Upright) Duration (Minutes) 5 Resistance 5 Seat Position 6 Gym Equipment Shuttle Recovery Unilateral Squats Resistance 50# Bilateral Squats Details Adductor Ball Squeeze Resistance 87# Shuttle Balance Red Details WBOS, Staggered, Lateral, NBOS Comments eyes at feet>eyes looking forward A/P weight shifts Therapeutic Exercises Supine Exercises Hamstring stretch Supine Exercise Name HS stretch holding behind knee with towel Side left Reps/Minutes 60 seconds X 2 Comments post manual therapy Bridging Supine Exercise Name Bridging /c adductor squeeze Standing Exercises Hip Extension Standing Exercise Name Hip Extension Side bilateral Resistance Green loop Other Exercises Resisted Ambulation Other Exercise Name Resisted side-stepping Resistance Green loop Neuro Re-Education Treatment Balance Activities Step-ups Details Lateral step-ups Surface AirEx Equipment one air ex left LE 2 stacked for right LE Reps/Duration X10 each LE PT-OP-T Assessment and Plan Start: 10/17/23 17:43 Freq: Status: Active Protocol: Document 11/22/23 10:35 SW (Rec: 11/22/23 11:17 [id number]) Physical Therapy Assessment Goals Two Impairment Pt exhibits moderately uncontrolled descent by left LE on stairs Chemical Dependency Professional Goal (LTG) Pt to exhibit proper technique with ascending and descending stairs equally between left and right LE in order to limit potential for falls or injury . LTG Duration 12/16/23 One Impairment Pt does not have an appropriate home exercise program Short Term Goal (STG) Pt to be independent and compliant with an appropriate HEP STG Duration 11/15/23 Assessment Summary Assessment Continued strengthening/ balance this session to progress toward pt goals. Pt challenged with balance, heavily reliant on visual feedback at feet to maintain balance, improved with repetition/time and pt was able to look forward during balance challenges by EOS. Instructed pt to increase HEP reps to progress strength exercises, pt to monitor mm fatigue. Physical Therapy Plan Frequency and Duration Frequency of Treatment 2x/Week Plan of Care Start Date 10/17/23 Plan of Care End Date 12/16/23 Therapeutic Interventions Therapeutic Interventions Gait Training,Home Exercise Program,Joint Mobilizations, Manual Therapy,Neuromuscular Re-education,Patient/Caregiver Education,Self-Care/Home Management,Soft Tissue Mobilization,Therapeutic Activities,Therapeutic Exercises Modalities Cold Pack/Ice Massage,Electric Stimulation,Hot Packs, Ultrasound Next Visit Focus/Plan Next Note Type Treatment Note Next Visit Plan Quad/HS strengthening, balance /stability challenges, gait training
--- NOTE | 2023-11-27 15:15 | PT.OTN ---
Current Diagnoses Unilateral primary osteoarthritis, left knee (11/27/23) Pain in left knee (11/27/23) Stiffness of left knee, not elsewhere classified (11/27/23) Other tear of medial meniscus, current injury, left knee, initial encounter (11/27/23) Other tear of medial meniscus, current injury, left knee, subsequent encounter (11/27/23) Physical Therapy Treatment Note PT-OP-A Visit Information Start: 10/17/23 17:43 Freq: Status: Active Protocol: Document 11/27/23 14:41 SP (Rec: 11/27/23 15:36 SP [id number]) Out-Patient Physical Therapy Visit Information Visit Information Visit Type Treatment Note Visit Start Time 14:40 Visit Stop Time 15:18 Visit Number 6 Number of WASTE MANAGEMENT SPECIALIST Visits 3 Evaluation Information Evaluation Date 10/17/23 PT-OP-B Current Condition Start: 10/17/23 17:43 Freq: Status: Active Protocol: Document 10/17/23 13:45 DCW (Rec: 10/18/23 10:56 DCW [id number]) Current Condition History of Current Condition Onset Date March, Current Complaints Meniscus tear, MCL/ACL sprain History of Current Condition Pt is a 63 year old female presenting with a seven month history of left knee pain. Notes that in March,, she was kneeling on a pile of books, which the slipped out from under her, resulting in her slamming her knee to the floor. Was painful at that point, but she was able to get up and walk around on it, so she basically just ignored it , although it never really went away. Pt was then hiking September 01, 2023, and five miles into her seven mile hike , she felt something give in her knee, and has had significantly increased discomfort since then. Obtained an MRI, which showed a medial meniscus tear, ACL sprain, and MCL sprain/partial -thickness tear. Has improved some since August, able to perform light jogging okay, but still feels weaker and less stable. Has difficulty standing on one leg. Squating and ascending/descending stairs is more difficult. Prior Treatments and Tests Left knee MRI: IMPRESSION: 1. Complex oblique tear involving posterior horn of medial meniscus extending to inferior articulating surface. The lateral meniscus is intact. 2. Low-grade ACL sprain. No ACL rupture. The PCL is intact. 3. Low-grade MCL sprain/partial-thickness tear. 4. Distal quadriceps tendinosis. 5. 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 No fracture or dislocation. Moderate joint effusion, no gross loose bodies. per Baldemar Thakkar M.D. on 09/24/2023 Treatment Goals Patient/Caregiver Goals I'd like it if it just went back to ignorable pain. PT-OP-C Subjective Start: 10/17/23 17:43 Freq: Status: Active Protocol: Document 11/27/23 14:41 SP (Rec: 11/27/23 15:36 SP [id number]) OP-PT Subjective Patient Comments Patient Comments Pt reports compliant with HEP. Tried wall squat earlier today and able get little lower with not pain. PT-OP-G Mobility & Gait Start: 10/17/23 17:43 Freq: Status: Active Protocol: Document 10/17/23 13:45 DCW (Rec: 10/18/23 10:56 DCW [id number]) OP Gait Assessment Comments Gait Comments Slight left toe-out/ER during gait Stair Climbing Evaluation Comments Stair Climbing Comments When lowering with left leg, pt exhibits significantly less control over descent, more of a free-fall that is stopped by her right foot. PT-OP-K Range of Motion Start: 10/17/23 17:43 Freq: Status: Active Protocol: Document 10/17/23 13:45 DCW (Rec: 10/18/23 10:56 DCW [id number]) Knee Goniometric Range of Motion Knee Right Patient Position Supine Flexion Active (degrees) 125 Extension Active (degrees) 2 Left Patient Position Supine Flexion Active (degrees) 119 Extension Active (degrees) 8 PT-OP-M Strength Start: 10/17/23 17:43 Freq: Status: Active Protocol: Document 10/17/23 13:45 DCW (Rec: 10/18/23 10:56 DCW [id number]) Hip Strength Hip Manual Muscle Testing Right Flexion (L2) 4+ Good+ Abduction 4+ Good+ Adduction 4 Good External Rotation 4+ Good+ Internal Rotation 4+ Good+ Left Flexion (L2) 4- Good- Abduction 4+ Good+ Adduction 4 Good External Rotation 4 Good Internal Rotation 4 Good Knee Strength Knee Manual Muscle Testing Right Flexion (S2) 4+ Good+ Extension (L3) 4+ Good+ Left Flexion (S2) 4 Good Extension (L3) 4 Good PT-OP-Q Treatments Start: 10/17/23 17:43 Freq: Status: Active Protocol: Document 11/27/23 14:41 SP (Rec: 11/27/23 15:36 SP [id number]) Cardio Equipment Bicycle (Upright) Duration (Minutes) 5 Resistance 5 Seat Position 6 Gym Equipment Shuttle Recovery Unilateral Squats Resistance 50# (2 navy) Reps/Time 2x15 Bilateral Squats Details Adductor Ball Squeeze (marble blue) Resistance 87# (2 navy, 1 teal) Reps/Time x15 Therapeutic Exercises Supine Exercises Bridging Supine Exercise Name Bridging /c adductor squeeze Equipment Used blue marble ball Reps/Minutes 2x15 Comments cued feet little closer, no HS spasm recruitment SLR Supine Exercise Name SLR /c ER Side left Resistance AROM x10, 2# leg wt Reps/Minutes x10 each Comments good response, tiring mid quad Sitting Exercises self STMs Sitting Exercise Name trialed in PT: quad, adductor, HS, calf, Tib Ant Side bilateral Equipment Used rolling pin Reps/Minutes 2 min total Standing Exercises SL star taps Standing Exercise Name initiated: RLE 4, 5, 6 o'clock Side left Reps/Minutes 3 reps x3 sets Comments cued hip hinge knee alignment /c behind forefoot Wall squat Standing Exercise Name Wall squat /c adductor squeeze Reps/Minutes 10 SH x2, 3 SH 3rd set Comments little medial R knee end 3rd set to stopped PT-OP-T Assessment and Plan Start: 10/17/23 17:43 Freq: Status: Active Protocol: Document 11/27/23 14:41 SP (Rec: 11/27/23 15:36 SP [id number]) Physical Therapy Assessment Goals Two Impairment Pt exhibits moderately uncontrolled descent by left LE on stairs Half-Way Goal (LTG) Pt to exhibit proper technique with ascending and descending stairs equally between left and right LE in order to limit potential for falls or injury . LTG Duration 12/16/23 One Impairment Pt does not have an appropriate home exercise program Short Term Goal (STG) Pt to be independent and compliant with an appropriate HEP STG Duration 11/15/23 Assessment Summary Assessment Pt improved no HS recruitment with cue foot position closer, better glut/quad tiring. Reported little medial L knee tension during mini wall squat and SLS star taps but corrected/modified alignment and improved hold up to 10 sec . Education on flexibility recovery HS stretch and rolling to quad/HS/calf pt reported felt like had a good effort with no pain end this tx. PRovided HO for SLS star taps for recall home, cue hip hinge form. Physical Therapy Plan Frequency and Duration Frequency of Treatment 2x/Week Plan of Care Start Date 10/17/23 Plan of Care End Date 12/16/23 Therapeutic Interventions Therapeutic Interventions Gait Training,Home Exercise Program,Joint Mobilizations, Manual Therapy,Neuromuscular Re-education,Patient/Caregiver Education,Self-Care/Home Management,Soft Tissue Mobilization,Therapeutic Activities,Therapeutic Exercises Modalities Cold Pack/Ice Massage,Electric Stimulation,Hot Packs, Ultrasound Next Visit Focus/Plan Next Note Type Treatment Note Next Visit Plan Progression bridge DL>SL, check response to SL star taps . POC: Quad/HS strengthening, balance/stability challenges, gait training 44
--- NOTE | 2023-11-27 15:18 | PT.OTN ---
Current Diagnoses Unilateral primary osteoarthritis, left knee (11/27/23) Pain in left knee (11/27/23) Stiffness of left knee, not elsewhere classified (11/27/23) Other tear of medial meniscus, current injury, left knee, initial encounter (11/27/23) Other tear of medial meniscus, current injury, left knee, subsequent encounter (11/27/23) Physical Therapy Treatment Note PT-OP-A Visit Information Start: 10/17/23 17:43 Freq: Status: Active Protocol: Document 11/27/23 14:41 SP (Rec: 11/27/23 15:36 SP [id number]) Out-Patient Physical Therapy Visit Information Visit Information Visit Type Treatment Note Visit Start Time 14:40 Visit Stop Time 15:18 Visit Number 6 Number of ROADS SUPERVISOR Visits 3 Evaluation Information Evaluation Date 10/17/23 PT-OP-B Current Condition Start: 10/17/23 17:43 Freq: Status: Active Protocol: Document 10/17/23 13:45 DCW (Rec: 10/18/23 10:56 DCW [id number]) Current Condition History of Current Condition Onset Date March, Current Complaints Meniscus tear, MCL/ACL sprain History of Current Condition Pt is a 63 year old female presenting with a seven month history of left knee pain. Notes that in March,, she was kneeling on a pile of books, which the slipped out from under her, resulting in her slamming her knee to the floor. Was painful at that point, but she was able to get up and walk around on it, so she basically just ignored it , although it never really went away. Pt was then hiking September 01, 2023, and five miles into her seven mile hike , she felt something give in her knee, and has had significantly increased discomfort since then. Obtained an MRI, which showed a medial meniscus tear, ACL sprain, and MCL sprain/partial -thickness tear. Has improved some since August, able to perform light jogging okay, but still feels weaker and less stable. Has difficulty standing on one leg. Squating and ascending/descending stairs is more difficult. Prior Treatments and Tests Left knee MRI: IMPRESSION: 1. Complex oblique tear involving posterior horn of medial meniscus extending to inferior articulating surface. The lateral meniscus is intact. 2. Low-grade ACL sprain. No ACL rupture. The PCL is intact. 3. Low-grade MCL sprain/partial-thickness tear. 4. Distal quadriceps tendinosis. 5. 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 No fracture or dislocation. Moderate joint effusion, no gross loose bodies. per Baldemar Thakkar M.D. on 09/24/2023 Treatment Goals Patient/Caregiver Goals I'd like it if it just went back to ignorable pain. PT-OP-C Subjective Start: 10/17/23 17:43 Freq: Status: Active Protocol: Document 11/27/23 14:41 SP (Rec: 11/27/23 15:36 SP [id number]) OP-PT Subjective Patient Comments Patient Comments Pt reports compliant with HEP. Tried wall squat earlier today and able get little lower with not pain. PT-OP-G Mobility & Gait Start: 10/17/23 17:43 Freq: Status: Active Protocol: Document 10/17/23 13:45 DCW (Rec: 10/18/23 10:56 DCW [id number]) OP Gait Assessment Comments Gait Comments Slight left toe-out/ER during gait Stair Climbing Evaluation Comments Stair Climbing Comments When lowering with left leg, pt exhibits significantly less control over descent, more of a free-fall that is stopped by her right foot. PT-OP-K Range of Motion Start: 10/17/23 17:43 Freq: Status: Active Protocol: Document 10/17/23 13:45 DCW (Rec: 10/18/23 10:56 DCW [id number]) Knee Goniometric Range of Motion Knee Right Patient Position Supine Flexion Active (degrees) 125 Extension Active (degrees) 2 Left Patient Position Supine Flexion Active (degrees) 119 Extension Active (degrees) 8 PT-OP-M Strength Start: 10/17/23 17:43 Freq: Status: Active Protocol: Document 10/17/23 13:45 DCW (Rec: 10/18/23 10:56 DCW [id number]) Hip Strength Hip Manual Muscle Testing Right Flexion (L2) 4+ Good+ Abduction 4+ Good+ Adduction 4 Good External Rotation 4+ Good+ Internal Rotation 4+ Good+ Left Flexion (L2) 4- Good- Abduction 4+ Good+ Adduction 4 Good External Rotation 4 Good Internal Rotation 4 Good Knee Strength Knee Manual Muscle Testing Right Flexion (S2) 4+ Good+ Extension (L3) 4+ Good+ Left Flexion (S2) 4 Good Extension (L3) 4 Good PT-OP-Q Treatments Start: 10/17/23 17:43 Freq: Status: Active Protocol: Document 11/27/23 14:41 SP (Rec: 11/27/23 15:36 SP [id number]) Cardio Equipment Bicycle (Upright) Duration (Minutes) 5 Resistance 5 Seat Position 6 Gym Equipment Shuttle Recovery Unilateral Squats Resistance 50# (2 navy) Reps/Time 2x15 Bilateral Squats Details Adductor Ball Squeeze (marble blue) Resistance 87# (2 navy, 1 teal) Reps/Time x15 Therapeutic Exercises Supine Exercises Bridging Supine Exercise Name Bridging /c adductor squeeze Equipment Used blue marble ball Reps/Minutes 2x15 Comments cued feet little closer, no HS spasm recruitment SLR Supine Exercise Name SLR /c ER Side left Resistance AROM x10, 2# leg wt Reps/Minutes x10 each Comments good response, tiring mid quad Sitting Exercises self STMs Sitting Exercise Name trialed in PT: quad, adductor, HS, calf, Tib Ant Side bilateral Equipment Used rolling pin Reps/Minutes 2 min total Standing Exercises SL star taps Standing Exercise Name initiated: RLE 4, 5, 6 o'clock Side left Reps/Minutes 3 reps x3 sets Comments cued hip hinge knee alignment /c behind forefoot Wall squat Standing Exercise Name Wall squat /c adductor squeeze Reps/Minutes 10 SH x2, 3 SH 3rd set Comments little medial R knee end 3rd set to stopped PT-OP-T Assessment and Plan Start: 10/17/23 17:43 Freq: Status: Active Protocol: Document 11/27/23 14:41 SP (Rec: 11/27/23 15:36 SP [id number]) Physical Therapy Assessment Goals Two Impairment Pt exhibits moderately uncontrolled descent by left LE on stairs Custodial Goal (LTG) Pt to exhibit proper technique with ascending and descending stairs equally between left and right LE in order to limit potential for falls or injury . LTG Duration 12/16/23 One Impairment Pt does not have an appropriate home exercise program Short Term Goal (STG) Pt to be independent and compliant with an appropriate HEP STG Duration 11/15/23 Assessment Summary Assessment Pt improved no HS recruitment with cue foot position closer, better glut/quad tiring. Reported little medial L knee tension during mini wall squat and SLS star taps but corrected/modified alignment and improved hold up to 10 sec . Education on flexibility recovery HS stretch and rolling to quad/HS/calf pt reported felt like had a good effort with no pain end this tx. PRovided HO for SLS star taps for recall home, cue hip hinge form. Physical Therapy Plan Frequency and Duration Frequency of Treatment 2x/Week Plan of Care Start Date 10/17/23 Plan of Care End Date 12/16/23 Therapeutic Interventions Therapeutic Interventions Gait Training,Home Exercise Program,Joint Mobilizations, Manual Therapy,Neuromuscular Re-education,Patient/Caregiver Education,Self-Care/Home Management,Soft Tissue Mobilization,Therapeutic Activities,Therapeutic Exercises Modalities Cold Pack/Ice Massage,Electric Stimulation,Hot Packs, Ultrasound Next Visit Focus/Plan Next Note Type Treatment Note Next Visit Plan Progression bridge DL>SL, check response to SL star taps . POC: Quad/HS strengthening, balance/stability challenges, gait training
--- NOTE | 2024-01-14 17:14 | PT.OTN ---
Current Diagnoses Unilateral primary osteoarthritis, left knee (01/14/24) Pain in left knee (01/14/24) Stiffness of left knee, not elsewhere classified (01/14/24) Other tear of medial meniscus, current injury, left knee, initial encounter (01/14/24) Other tear of medial meniscus, current injury, left knee, subsequent encounter (01/14/24) Physical Therapy Treatment Note PT-OP-A Visit Information Start: 10/17/23 17:43 Freq: Status: Active Protocol: Document 01/14/24 16:47 DCW (Rec: 01/14/24 17:14 DCW [id number]) Out-Patient Physical Therapy Visit Information Visit Information Visit Type Discharge Summary Visit Start Time 16:47 Visit Stop Time 17:02 Visit Number 7 Number of ASSISTANT PROFESSOR OF LIFE SCIENCES Visits 0 Evaluation Information Evaluation Date 10/17/23 PT-OP-B Current Condition Start: 10/17/23 17:43 Freq: Status: Active Protocol: Document 10/17/23 13:45 DCW (Rec: 10/18/23 10:56 DCW [id number]) Current Condition History of Current Condition Onset Date March, Current Complaints Meniscus tear, MCL/ACL sprain History of Current Condition Pt is a 63 year old female presenting with a seven month history of left knee pain. Notes that in March,, she was kneeling on a pile of books, which the slipped out from under her, resulting in her slamming her knee to the floor. Was painful at that point, but she was able to get up and walk around on it, so she basically just ignored it , although it never really went away. Pt was then hiking September 01, 2023, and five miles into her seven mile hike , she felt something give in her knee, and has had significantly increased discomfort since then. Obtained an MRI, which showed a medial meniscus tear, ACL sprain, and MCL sprain/partial -thickness tear. Has improved some since August, able to perform light jogging okay, but still feels weaker and less stable. Has difficulty standing on one leg. Squating and ascending/descending stairs is more difficult. Prior Treatments and Tests Left knee MRI: IMPRESSION: 1. Complex oblique tear involving posterior horn of medial meniscus extending to inferior articulating surface. The lateral meniscus is intact. 2. Low-grade ACL sprain. No ACL rupture. The PCL is intact. 3. Low-grade MCL sprain/partial-thickness tear. 4. Distal quadriceps tendinosis. 5. 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 No fracture or dislocation. Moderate joint effusion, no gross loose bodies. per Baldemar Thakkar M.D. on 09/24/2023 Treatment Goals Patient/Caregiver Goals I'd like it if it just went back to ignorable pain. PT-OP-C Subjective Start: 10/17/23 17:43 Freq: Status: Active Protocol: Document 01/14/24 16:47 DCW (Rec: 01/14/24 16:51 DCW [id number]) OP-PT Subjective Patient Comments Patient Comments It's slowly been getting better. I havent been the best with my exercises, but at least I know what to do. When I do them they've been helpful . PT-OP-G Mobility & Gait Start: 10/17/23 17:43 Freq: Status: Active Protocol: Document 01/14/24 16:47 DCW (Rec: 01/14/24 16:59 DCW [id number]) Stair Climbing Evaluation Comments Stair Climbing Comments Well controlled descent bilaterally on stairs PT-OP-K Range of Motion Start: 10/17/23 17:43 Freq: Status: Active Protocol: Document 01/14/24 16:47 DCW (Rec: 01/14/24 16:59 DCW [id number]) Knee Goniometric Range of Motion Knee Left Patient Position Supine Flexion Active (degrees) 129 Extension Active (degrees) 4 PT-OP-M Strength Start: 10/17/23 17:43 Freq: Status: Active Protocol: Document 01/14/24 16:47 DCW (Rec: 01/14/24 16:59 DCW [id number]) Hip Strength Hip Manual Muscle Testing Right Flexion (L2) 4+ Good+ Abduction 4+ Good+ Adduction 4+ Good+ External Rotation 4+ Good+ Internal Rotation 4+ Good+ Left Flexion (L2) 4+ Good+ Abduction 4+ Good+ Adduction 4+ Good+ External Rotation 4+ Good+ Internal Rotation 4 Good Knee Strength Knee Manual Muscle Testing Right Flexion (S2) 4+ Good+ Extension (L3) 4+ Good+ Left Flexion (S2) 4+ Good+ Extension (L3) 4+ Good+ PT-OP-Q Treatments Start: 10/17/23 17:43 Freq: Status: Active Protocol: Document 11/27/23 14:41 SP (Rec: 11/27/23 15:36 SP [id number]) Cardio Equipment Bicycle (Upright) Duration (Minutes) 5 Resistance 5 Seat Position 6 Gym Equipment Shuttle Recovery Unilateral Squats Resistance 50# (2 navy) Reps/Time 2x15 Bilateral Squats Details Adductor Ball Squeeze (marble blue) Resistance 87# (2 navy, 1 teal) Reps/Time x15 Therapeutic Exercises Supine Exercises Bridging Supine Exercise Name Bridging /c adductor squeeze Equipment Used blue marble ball Reps/Minutes 2x15 Comments cued feet little closer, no HS spasm recruitment SLR Supine Exercise Name SLR /c ER Side left Resistance AROM x10, 2# leg wt Reps/Minutes x10 each Comments good response, tiring mid quad Sitting Exercises self STMs Sitting Exercise Name trialed in PT: quad, adductor, HS, calf, Tib Ant Side bilateral Equipment Used rolling pin Reps/Minutes 2 min total Standing Exercises SL star taps Standing Exercise Name initiated: RLE 4, 5, 6 o'clock Side left Reps/Minutes 3 reps x3 sets Comments cued hip hinge knee alignment /c behind forefoot Wall squat Standing Exercise Name Wall squat /c adductor squeeze Reps/Minutes 10 SH x2, 3 SH 3rd set Comments little medial R knee end 3rd set to stopped PT-OP-T Assessment and Plan Start: 10/17/23 17:43 Freq: Status: Active Protocol: Document 01/14/24 16:47 DCW (Rec: 01/14/24 17:14 DCW [id number]) Physical Therapy Assessment Goals Two Impairment Pt exhibits moderately uncontrolled descent by left LE on stairs Senior Living Goal (LTG) Pt to exhibit proper technique with ascending and descending stairs equally between left and right LE in order to limit potential for falls or injury . LTG Duration Met One Impairment Pt does not have an appropriate home exercise program Short Term Goal (STG) Pt to be independent and compliant with an appropriate HEP STG Duration Met Progress Towards Goals Progress Towards Goals Goals Met Assessment Summary Assessment Pt doing very well overall. Pt has met all goals, and has good understanding of appropriate home exercise program. Patient and therapist in agreement for discharge at this time. Physical Therapy Plan Frequency and Duration Frequency of Treatment 1x/Week Plan of Care Start Date 01/14/24 Plan of Care End Date 01/15/24 Therapeutic Interventions Therapeutic Interventions Gait Training,Home Exercise Program,Joint Mobilizations, Manual Therapy,Neuromuscular Re-education,Patient/Caregiver Education,Self-Care/Home Management,Soft Tissue Mobilization,Therapeutic Activities,Therapeutic Exercises Modalities Cold Pack/Ice Massage,Electric Stimulation,Hot Packs, Ultrasound Discharge Physical Therapy Discharge Reasons Goals Met Next Visit Focus/Plan Next Note Type Discharge Summary
--- NOTE | 2024-01-14 17:14 | PT.OPPOC ---
Physical, Occupational & Speech Therapy At [facility] Current Diagnoses Unilateral primary osteoarthritis, left knee (01/14/24) Pain in left knee (01/14/24) Stiffness of left knee, not elsewhere classified (01/14/24) Other tear of medial meniscus, current injury, left knee, initial encounter (01/14/24) Other tear of medial meniscus, current injury, left knee, subsequent encounter (01/14/24) Visit Care Team Role Provider Type Hank Rey DO Attending Provider Physician Family Provider Primary Care Provider Referring Provider Specialty: Interventional Radiology Physiatry Pain Management Address: [address] [place] [address], [id number] Email: [email or web address] Plan Of Care PT-OP-T Assessment and Plan Start: 10/17/23 17:43 Freq: Status: Active Protocol: Document 01/14/24 16:47 DCW (Rec: 01/14/24 17:14 DCW [id number]) Physical Therapy Assessment Goals Two Impairment Pt exhibits moderately uncontrolled descent by left LE on stairs Car Cleaner Goal (LTG) Pt to exhibit proper technique with ascending and descending stairs equally between left and right LE in order to limit potential for falls or injury . LTG Duration Met One Impairment Pt does not have an appropriate home exercise program Short Term Goal (STG) Pt to be independent and compliant with an appropriate HEP STG Duration Met Progress Towards Goals Progress Towards Goals Goals Met Assessment Summary Assessment Pt doing very well overall. Pt has met all goals, and has good understanding of appropriate home exercise program. Patient and therapist in agreement for discharge at this time. Physical Therapy Plan Frequency and Duration Frequency of Treatment 1x/Week Plan of Care Start Date 01/14/24 Plan of Care End Date 01/15/24 Therapeutic Interventions Therapeutic Interventions Gait Training,Home Exercise Program,Joint Mobilizations, Manual Therapy,Neuromuscular Re-education,Patient/Caregiver Education,Self-Care/Home Management,Soft Tissue Mobilization,Therapeutic Activities,Therapeutic Exercises Modalities Cold Pack/Ice Massage,Electric Stimulation,Hot Packs, Ultrasound Discharge Physical Therapy Discharge Reasons Goals Met Next Visit Focus/Plan Next Note Type Discharge Summary Plan of Care Dates Plan of Care Start Date 01/14/24 Plan of Care End Date 01/15/24 Electronically Signed by: Ace Epstein, PT 01/14/24 4 If you are in agreement with this Plan of Care, please return a signed and dated copy. I have reviewed this Plan of Care and certify that the skilled therapy services above are required to meet the patient?s needs. Physician Signature Date Printed Name and Credentials Clinical Instructor Signature Printed Name and Credentials
== END 2024-01-17 09:32 | disposition home or self-care (01) ==
LOC: PHYS 16:45
PROVIDERS: Family Provider Physical Medicine & Rehabilitation; PCP Physical Medicine & Rehabilitation; Referring Provider Physical Medicine & Rehabilitation; Visit Provider Physical Medicine & Rehabilitation
DX: S83.242D Other tear of medial meniscus, current injury, left knee, subsequent encounter (principal); M17.12 Unilateral primary osteoarthritis, left knee; M25.662 Stiffness of left knee, not elsewhere classified; M25.562 Pain in left knee; S83.242A Other tear of medial meniscus, current injury, left knee, initial encounter
CPT/HCPCS: 97110; 97112; 97116; 97140; 97162; 97530